=== PATIENT | male | born 1950 | race Caucasian/White ===

== ENCOUNTER 2020-06-04 17:47 | Emergency (ER) | payer OTHER ==
[2020-06-04 18:12] VITALS: BMI 32.8
--- NOTE | 2020-06-04 18:35 | PDOC ---
History of Present Illness - General Chief Complaint: Nausea/Vomiting Stated Complaint: VOMITING Time Seen by Provider: 06/04/20 18:35 History Source: Patient, Family Exam Limitations: No Limitations - History of Present Illness Initial Comments: 06/04/20 18:54 70M with PMH of smoking presents to the ED after a fall due to dizziness. He reports it as "world spinning" when standing up. Unsure if he hit his head or had LOC but reports pain in the left shoulder and low back. Son is at bedside providing some hx, and stated that the landlord said that the pt was acting abnormal after the fall and had slurred speech. The son reported occasional intermittent episodes of slurred speech and "shaking" that resolve spontaneously w/o intervention. The pt currently has slurred speech, worse than baseline per the son. Currently he denies lightheaded/dizziness, cp, sob, nvdc, dysuria, numbness/tingling, weakness. PMH: as in HPI SH: see below Meds: none Allergies: NKDA Tob/Etoh/Rec drugs: smoker, neg x2 PCP: none ROS GENERAL/CONSTITUTIONAL: No fever or chills. No weakness. HEENT: No change in vision. No ear pain or discharge. No sore throat. CARDIOVASCULAR: No chest pain or shortness of breath RESPIRATORY: No cough, wheezing, or hemoptysis. GASTROINTESTINAL: No nausea, vomiting, diarrhea or constipation. GENITOURINARY: No dysuria, frequency, or change in urination. MUSCULOSKELETAL: No joint or muscle swelling or pain. No neck or back pain. SKIN: No rash NEUROLOGIC: No headache, vertigo, loss of consciousness, or change in strength/sensation. ENDOCRINE: No increased thirst. No abnormal weight change HEMATOLOGIC/LYMPHATIC: No anemia, easy bleeding, or history of blood clots. ALLERGIC/IMMUNOLOGIC: No hives or skin allergy. PE GENERAL: AOx3; appears lethargic HEAD: No signs of trauma, NC/AT EYES: PERRLA, EOMI, sclera anicteric, conjunctiva clear ENT: Auricles normal inspection, hearing grossly normal, nares patent, moist mucosa, oropharynx clear without exudates. NECK: Normal ROM, supple, no LAD, JVD, or masses. No midline c-spine tenderness. HEART: RRR, normal S1/S2, no murmurs, rubs, or gallops. Peripheral pulses 2+ and equal bilaterally. LUNGS: No distress, speaks full sentences, CTA bilaterally ABDOMEN: Soft, nontender. No guarding, no rebound. No masses BACK: midline lumbar tenderness (L3-5) EXTREMITIES: Normal inspection, Normal range of motion, no edema. Left shoulder tenderness (deltoid and posterior shoulder) NEUROLOGICAL: CNII-XII intact. Normal speech. No focal sensorimotor deficits. Fi [id number] intact. SKIN: Warm, Dry, normal turgor. No rashes or lesions noted Assessment and Plan 1. r/o intracranial hemorrhage Gordon Lambert, PGY1 Emergency Medicine Past History - Medical History Allergies/Adverse Reactions: Allergies Allergy/AdvReac Type Severity Reaction Status Date / Time No Known Allergies Allergy Verified 06/04/20 19:11 COPD: No Other medical history: parkinson migraines - Psycho-Social/Smoking History Smoking History: Smoker current status UNK Have you smoked in the past 12 months: No Information on smoking cessation initiated: No - Substance Abuse Hx (Audit-C & DAST Scrn) How often the patient has a drink containing alcohol: Never Score: In Men: 4 or > Positive; In Women: 3 or > Positive: 0 Screen Result (Pos requires Nsg. Audit-10AR): Negative In the last yr the pt used illegal drug/Rx for NonMed reason: No Score: Yes response is considered Positive: 0 Screen Result (Positive result requires Nsg. DAST-10): Negative *Physical Exam - Vital Signs Last Vital Signs Temp Pulse Resp BP Pulse Ox 98 F 84 20 136/86 95 06/04/20 18:07 06/04/20 18:07 06/04/20 18:07 06/04/20 18:07 06/04/20 18:07 Medical Decision Making - Medical Decision Making 06/04/20 19:06 70M with hx/o smoking presents after fall 2/2 dizziness. Pt appears lethargic, but neurologically intact. NC/AT. Left shoulder tenderness. -> head CT for intracranial hemorrhage. Left shoulder xray to eval for fracture or dislocation. Will get basic labs to eval for etiology of dizziness. 06/04/20 19:29 Signed out to night team. Discharge - Discharge Information Problems reviewed: Yes Clinical Impression/Diagnosis: Fall Qualifiers: Encounter type: initial encounter Qualified Code(s): W19.XXXA - Unspecified fall, initial encounter - Follow up/Referral - Patient Discharge Instructions - Post Discharge Activity
--- NOTE | 2020-06-04 19:15 | PDOC ---
*Physical Exam - Vital Signs Last Vital Signs Temp Pulse Resp BP Pulse Ox 98 F 84 20 136/86 95 06/04/20 18:07 06/04/20 18:07 06/04/20 18:07 06/04/20 18:07 06/04/20 18:07 ED Treatment Course - LABORATORY CBC & Chemistry Diagram: 06/04/20 18:50 06/04/20 18:50 Medical Decision Making - Medical Decision Making 06/04/20 19:41 HPI: 70yo M hx tremors (neuro [facility] w/u 2 MRIs and 2 CTs for episodic slurred speech and extremity tremors; ?Parkinson's, no CVA or ICH), no meds (but doesn't see PCP that much) presents from home with son c/o unwitnessed dizziness and collapse yesterday and today. Describes dizziness as room spinning; no current dizziness. Denies syncope/passing out, preceding CP or N/V or SOB, recent illness, seizure, hx syncope or dizziness, N/T, weakness, vision changes, incontinence. Pt was unable to stand up and ambulate. Pt c/o R shoulder and lower back pain (no hx of back pain or issues). PCP - at [place] [facility] - [facility] Neuro PE tired appearing, eyes rolling back hard of hearing slurred speech, no facial droop, no nystagmus pelvis stable, intact unable to lift either leg 2/2 back pain but able to move along bed SILT throughout otherwise neurovascularly intact A&Ox4 R shoulder pain and decreased ROM -EKG -CXR, XR shoulder, XR pelvis -CT head, c-spine, l-spine -Syncope labs -Pain management: morphine -Dispo: admit 06/04/20 20:07 XR chest and shoulder reviewed: no acute pathology Labs reviewed. WBC 12.4, CK 456. CTs reviewed: CT scan of the head without intravenous contrast There is mild volume loss and ventricular dilatation. Moderate to large area of decreased attenuation the right anterolisthesis extent left cerebellum with mass effect on the fourth ventricle that appears to be effaced. There is a small focal hyperdensity seen in the right posterior cerebellar measuring 7 mm that may represent a small focus of hemorrhage. There is also decreased attenuation/edema in the dariel with faintly visualized focal hyperdensity on the right measuring approximately 8 mm. Cannot rule out hemorrhage. There is no shift of the midline structures. Limited visualization of the craniocervical junction. The calvarium is intact. 10 mm retention cyst versus polyp in the right x-ray antrum, medially. Partially opacified right side of the sphenoid sinus with an air-fluid level compatible with acute sinusitis. Impression: Decreased attenuation/edema in the right and to a lesser extent left side of the cerebellum with mass effect and effacement of the fourth ventricle that may be slightly displaced towards the left. There is also decreased attenuation in the dariel. Although findings may be related to an acute/subacute infarct, further evaluation with contrast-enhanced MRI of the brain is needed to rule out the presence of a mass lesion with surrounding vasogenic edema. Small focal hyperdensity in the right posterior cerebellum and right side of the dariel. Cannot rule out hemorrhage. CT scan of the cervical spine without intravenous contrast Coronal and sagittal reconstruction images were obtained. No gross fracture, subluxation or prevertebral soft tissue swelling is seen. No jumped facets are identified. C5-C6 moderate degenerative disc disease, mild disc osteophyte complex and bilateral uncovertebral hypertrophy moderately narrowing the foramen. C6-C7 moderate degenerative disc disease with mild broad-based disc osteophyte complex and uncovertebral hypertrophy moderately narrowing the left and slightly narrowing the right foramen. CT-C3 moderate right facet hypertrophy Visualized portion of the airway appears unremarkable. Multiple small calcific densities in the tonsils suggestive of tonsillar stones. Tiny calcified plaques at the common carotid bifurcation, bi laterally. No gross enlarged lymph nodes are identified. Lung windows at the thoracic inlet demonstr ates small biapical subpleural bulla IMPRESSION: The alignment is satisfactory. No gross fracture or subluxation is seen. Multilevel degenerative disc disease, as described above. CT scan of the lumbar spine without intravenous contrast. Coronal and sagittal reconstruction images were obtained. There is straightening of the lumbar spine. The alignment is satisfactory. There is mild compression of L3 superior endplate, on the right with a focal low-attenuation density in right side of the vertebral body measuring 2.4 x 1.9 cm and significant cortical thinning along the right lateral margin of the vertebral body and with small calcific densities present. Slightly prominent right paravertebral soft tissue is present at this level. L2-L3 moderate degenerative disc disease and mild disc osteophyte complex L3-L4 mild degenerative disc disease and mild mainly central disc osteophyte complex resulting in moderate canal stenosis L4-L5 mild degenerative vacuum phenomena and mild disc osteophyte complex does not L5-S1 the mild degenerative vacuum phenomena with mild broad-based disc osteophyte complex reaching and probably impinging both L5 nerve roots Impression: Mild compression of L3 superior endplate, on the right with focal low-attenuation density in right side of the vertebral body that demonstrates a few small calcific densities, significant cortical thinning along right lateral margin of the vertebral body and slightly prominent right paravertebral soft tissue suspicious for a lytic lesion. Does the patient have any clinical history of malignancy? Correlation with MRI of the lumbar spine could be obtained for further evaluation. Multilevel degenerative disc disease, as described above. NSGY consulted: recommends MRI. Pt unable to tolerate MRI without sedation due t 06/05/20 01:18 Discussed CTA neck/brain with IOC - multiple masses concerning for mets. "3.2cm possibly necrotic mass in R cerebellar lobe with an 11mm similar appearing mass in R cerebellar peduncle. There may be a 13mm mass in the posterior midline of the cerebellum. No significant mass effect. Metastases are considered." Multiple calls and texts placed to NSGY without response. Will transfer to [facility] - call placed. Auto-accepted to adult ER by Dr Joseph. Discussed with Dr Joseph. Pt verbally consents to transfer. Unable to sign form 2/[address] Mi discussed with family on phone and also agree to transfer. Discharge - Discharge Information Problems reviewed: Yes Clinical Impression/Diagnosis: Syncope and collapse, Brain mass, L3 vertebral fracture Fall Qualifiers: Encounter type: initial encounter Qualified Code(s): W19.XXXA - Unspecified fall, initial encounter Condition: Guarded Disposition: TRANSFER ACUTE CARE/OTHER HOSP - Admission Yes - Follow up/Referral - Patient Discharge Instructions - Post Discharge Activity
[2020-06-04] MEDS ORDERED: morphine CARPU-JECT 2 MG/1 ML DISP.SYRIN IVPUSH ONE (19:38)
[2020-06-04 19:56] LABS: BASO % 0.4 % (0-2.0); EOS % 0.9 % (0-4.5); HEMATOCRIT 48.3 % (35.4-49); HEMOGLOBIN 16.4 GM/dL (11.7-16.9); LYMPH % 12.9 % (8-40); MCH 31.9 pg (25.7-33.7); MCHC 33.9 g/dl (32.0-35.9); MEAN CELL VOLUME 94.1 fl (80-96); MEAN PLT VOLUME 10.2 fl (7.5-11.1); MONO % 9.3 % (3.8-10.2); NEUT % 76.5 % (42.8-82.8); PLATELET COUNT 238 K/MM3 (134-434); RBC 5.14 M/mm3 (4.00-5.60); RDW 13.8 % (11.9-15.9); WHITE BLOOD COUNT 12.4 K/mm3 (4.0-10.0)
[2020-06-04 20:00] LABS: INR 1.08 (0.83-1.09); PROTHROMBIN TIME (PATIENT) 12.8 SEC (9.7-13.0)
[2020-06-04 20:02] LABS: ACTIVATED PTT 29.3 SECONDS (25.2-36.5)
[2020-06-04] MEDS ORDERED: SODIUM CHLORIDE 0.9% 500 ML INFUS.BAG IV ONE (20:08)
[2020-06-04 20:20] LABS: ALBUMIN 3.8 g/dl (3.4-5.0); ALK PHOS 112 U/L (45-117); ANION GAP 10 MMOL/L (8-16); BILIRUBIN,TOTAL 1.2 mg/dL (0.2-1); BLOOD UREA NITROGEN 17.6 mg/dL (7-18); CALCIUM 9.9 mg/dL (8.5-10.1); CHLORIDE 99 mmol/L (98-107); CO2 28 mmol/L (21-32); GLUCOSE,RANDOM 113 mg/dL (74-106); LIPASE 34 U/L (73-393); MAGNESIUM 2.3 mg/dL (1.8-2.4); SGOT/AST 36 U/L (15-37); SGPT/ALT 32 U/L (13-61); SODIUM 137 mmol/L (136-145); TOT PROT 8.2 g/dl (6.4-8.2)
[2020-06-04] MEDS ORDERED: ONDANSETRON 4 MG/2 ML VIAL IVPUSH ONE (20:31)
[2020-06-04] MEDS ORDERED: METOCLOPRAMIDE HCL INJECTION 10 MG/2 ML VIAL IVPB ONE (20:32)
[2020-06-04] MEDS ORDERED: MORPHINE SULFATE 2 MG/ML VIAL ONE (20:33)
[2020-06-04] MEDS ORDERED: METOCLOPRAMIDE HCL INJECTION 10 MG/2 ML VIAL ONE (20:33)
--- NOTE | 2020-06-04 20:36 | PDOC ---
Documentation entered by Anna Marie Jernigan SCRIBE, acting as scribe for Vonda Mi DO. Vonda Mi DO: This documentation has been prepared by the josephe, Anna Marie Jernigan SCRIBE, under my direction and personally reviewed by me in its entirety. I confirm that the documentation accurately reflects all work, treatment, procedures, and medical decision making performed by me. Attending Attestation - Resident Resident Name: Gordon Lambert (Raymon) - ED Attending Attestation I have performed the following: I have examined & evaluated the patient, The case was reviewed & discussed with the resident, I agree w/resident's findings & plan, Exceptions are as noted - HPI HPI: 06/04/20 18:35 Patient is a 70 year old male with a significant past medical history of smoking who presents to the ED with a fall caused by dizziness. Kat stated he is unsure if he hit his head or experienced LOC, just that he felt the "world spinning" while standing up before he fell down. Per the patient's son at bedside, ashleyfarhad said that the patient was acting "abnormal" after fall and had slurred speech. Son also reports that the patient has occasional episodes of "shaking" and slurred speech which resolve on their own. Patient currently has slurred speech. Patient endorses: left shoulder and lower back pain Patient denies: current weakness, numbness, tingling, lightheadedness, dizziness, nausea, vomiting, SOB, chest pain, diarrhea, constipation, dysuria, or any other related symptoms. Allergies: NKDA - Physicial Exam PE: 06/04/20 20:18 gen: aaox3, sleepy but arousable head: no external signs of trauma on the head neck: no midline ttp back: midline ttp lower thoracic and lumbar spine midline, no stepoffs or deformities, abrasion to L posterior shoulder heart: +s1s2 reg lungs: cta b/l abd: soft, nt/nd +bs ext: no c/c/e, TTP L shoulder, pulses intact, limited ROM of the L shoulder secondary to pain - Medical Decision Making 06/04/20 20:20 a/p: 70yo male with an episode of dizzy yesterday resulting in a fall - lbp and L shoulder pain since -unable to get up after the fall -about a day on the floor -no hip ttp -concern for distal t or l spine fx, suspect L shoulder contusion, no dislocation, concern for rhabdo -will send labs, xrays, ekg, pain control, ivf 06/04/20 20:36 pt now vomiting will medicate for vomiting and dizziness with reglan 06/04/20 20:36 ck 456 trop pending labs reviewed 06/04/20 21:11 no acute shoulder findings on xray cxr clear pelvis xray without fx 06/04/20 22:52 pt with poss small hemorrhage, poss mass on head ct L3 end plate fx resident discussed the case with Dr. Tucker 06/04/20 23:13 case again discussed with Dr. Tucker, will order CTA head and then re-discuss 06/04/20 23:22 pts son updated on current imaging results 06/05/20 01:[address] findings with the radiologist - concern for masses in the brain on ct discussed with the son - Tima who understands and agrees with transfer pt updated about the transfer resident discussed the case with [facility] who accepts pt in transfer Heart Score/ECG Review - ECG Intrepretation Comment:: 06/04/20 20:35 sinus at 87, nl axis, nl interval, no acute st/t wave findings Discharge - Discharge Information Problems reviewed: Yes Clinical Impression/Diagnosis: Syncope and collapse, Brain mass, L3 vertebral fracture Fall Qualifiers: Encounter type: initial encounter Qualified Code(s): W19.XXXA - Unspecified fall, initial encounter Condition: Guarded Disposition: TRANSFER ACUTE CARE/OTHER HOSP - Follow up/Referral - Patient Discharge Instructions - Post Discharge Activity - Transfer to Acute Care Facility Receiving Facility Name: [facility]-[address]
[2020-06-04] MEDS ORDERED: LIDOCAINE PATCH REMOVAL MC SCH (22:00)
[2020-06-04] MEDS ORDERED: LIDOCAINE 5% TOPICAL PATCH TP ONE (22:00)
[2020-06-04] MEDS ORDERED: LIDOCAINE 5% TOPICAL PATCH ONE (22:16)
[2020-06-05 02:03] VITALS: BP 132/88; PULSE 77; TEMP 97.9
--- NOTE | 2020-06-05 13:23 | EKG ---
Test Reason : Blood Pressure : / mmHG Vent. Rate : 087 BPM Atrial Rate : 087 BPM P-R Int : 150 ms QRS Dur : 088 ms QT Int : 380 ms P-R-T Axes : 044 071 044 degrees QTc Int : 457 ms POOR DATA QUALITY, INTERPRETATION MAY BE ADVERSELY AFFECTED NORMAL SINUS RHYTHM NORMAL ECG NO PREVIOUS ECGS AVAILABLE Confirmed by BOB LUCAS MD ([id number]) on 06/05/2020 1:23:10 PM Referred By: Confirmed By:BOB LUCAS MD
== END 2020-06-05 02:15 | disposition short-term general hospital (02) ==
LOC: JER 17:47
PROC: 3E033NZ Introduction of Analgesics, Hypnotics, Sedatives into Peripheral Vein, Percutaneous Approach (ICD-10-PCS; principal; 2020-06-04)
PROC: 3E033GC Introduction of Other Therapeutic Substance into Peripheral Vein, Percutaneous Approach (ICD-10-PCS; 2020-06-04)
DX: R55 Syncope and collapse (principal); G93.89 Other specified disorders of brain; S32.030A Wedge compression fracture of third lumbar vertebra, initial encounter for closed fracture
CPT/HCPCS: 36415; 70450-TC; 70496-TC; 70498-TC; 71045-TC-FY; 72125-TC; 72131-TC; 72170-TC-FY; 73030-TC-LT-FY; 80053; 82550; 82553; 83605; 83690; 83735; 84484; 85025; 85610; 85730; 86850; 86900; 86901; 93005; 93010; 99285-25; C9803; U0003